=== PATIENT | female | born 1945 ===

== ENCOUNTER 2017-12-30 03:02 | Observation (INO) | payer MEDICARE ==
[2017-12-29 14:22] LABS: INR 0.94
--- NOTE | 2017-12-29 15:29 | RADIOLOGY IMAGING REPORT ---
FACILITY: [facility] [place] PATIENT NAME: Spring Westbrook : 1945 MR: [id number] V: [id number] EXAM DATE: ORDERING PHYSICIAN: JUANITA BARNARD TECHNOLOGIST: Location: [facility] Patient: Spring Westbrook : 1945 Visit/Account:[id number] Date of Sevice: 12/29/2017 LEGS BILAT STANDING HIPS-ANKLE Indication: PRE TKA Comparison: None. Findings: Right leg length: 80.8 cm. This is measured from the cephalad portion of the femoral head to the tib ial distal articular surface. Right femur measurement from the superior margin of the femoral head t o the medial femoral condyle is 44.8 cm.. The right tibia measures 35.5 cm from the medial tibial pl ateau to the medial tibial plafond. Left leg measurement: 80.2 cm. The left femur measures 45.2 cm from the superior margin of the left femoral head to the medial femoral condyle. The left tibia measures 34.5 cm from the medial tibial p lateau to the medial tibial plafond. No acute osseous amount is seen in the right or left lower extremity. Impression: Right and left lower extremity measurements as described above. The right leg is slightly longer than the left. Report Dictated By: Neel Jon at 12/29/2017 3:10 PM Report E-Signed By: Neel Jon at 12/29/2017 3:25 PM WSN:[id number]
[2017-12-30] VITALS (11 sets, daily range): BP systolic 100–154; BP diastolic 62–86; Ht 157.5 cm; Wt 84.4 kg
[~2017-12-30] VITALS: Ht 157.5 cm; Wt 84.4 kg
[~2017-12-30 03:02] MED LIST: ASPI-1471 PO; ASPI-764 PO; CHOL10005 PO; HYDR-2966 PO; HYDR-317 PO; LISI-374 PO; NS 0.9% IVPB ONE; OMEP-114 PO; PRAV20TA66 PO; PROM-110 PO; QUIN40TA37 PO; SCOPOLAMINE 1.5 MG PATCH TD ONE; SCOT TD; TRANEXAMIC AC 1000 MG/10ML SDV 1,000 MG in DEXTROSE 5% 50 ML BAG 50 ML IV ONE; VANCOMYCIN IVPB ONE; cloNIDine EPIDUR INJ 100MCG/ML 40 MCG, ROPIVACAINE 0.5% 20 ML VIAL 25 ML, EPINEPHrine H... INJ ONE
[2017-12-30] MEDS ORDERED: VANCOMYCIN(*) 1 GM VIAL 1 GM, VANCOMYCIN (*) 0.5 GM VIAL 0.25 GM in NS(*) 0.9% 250 ML B... IVPB ONE (07:50)
[2017-12-30] MEDS ORDERED: APREPITANT 40 MG CAP PO ONE (08:00)
[2017-12-30] MEDS ORDERED: MIDAZOLAM 2 MG/2 ML VIAL IVP PRN (08:50)
[2017-12-30] MEDS ORDERED: TRANEXAMIC AC 1000 MG/10ML SDV 1,000 MG in DEXTROSE 5% 50 ML BAG 50 ML IV ONE (08:50)
[2017-12-30] MEDS ORDERED: cloNIDine EPIDUR INJ 100MCG/ML 40 MCG, ROPIVACAINE 0.5% 20 ML VIAL 25 ML, EPINEPHrine H... INJ ONE (08:50)
[2017-12-30] MEDS ORDERED: NORMOSOL R SOLN(*) 1000 ML BAG 1,000 ML IV PRN (08:50)
[2017-12-30] MEDS ORDERED: LIDOCAINE/SOD BICARB 8.4% SYR ID ONE (08:50)
[2017-12-30] MEDS ORDERED: fentaNYL CITR 250 MCG/5 ML AMP ONE (11:02)
[2017-12-30] MEDS ORDERED: ROPIVACAINE 0.5% 20 ML VIAL ONE (11:44)
[2017-12-30] MEDS ORDERED: PROPOFOL EMUL(*) 10MG/ML 20 ML 160 ML ONE (11:45)
[2017-12-30] MEDS ORDERED: DEXAMETHASONE SOD PHOS 10MG/ML ONE (11:45)
[2017-12-30] MEDS ORDERED: LIDOCAINE MPF 1% 5 ML VIAL ONE (11:45)
[2017-12-30] MEDS ORDERED: ONDANSETRON 4 MG/2 ML VIAL ONE (11:45)
[2017-12-30] MEDS ORDERED: PROPOFOL EMUL(*) 10MG/ML 20 ML 40 ML ONE (12:24)
[2017-12-30] MEDS ORDERED: diphenhydrAMINE 25 MG CAP PO PRN (12:45)
[2017-12-30] MEDS ORDERED: PROMETHAZINE 25 MG/ML 1 ML AMP IVP PRN (12:45)
[2017-12-30] MEDS ORDERED: FLUSH 10 ML SYR IVP PRN (12:45)
[2017-12-30] MEDS ORDERED: ONDANSETRON 4 MG/2 ML VIAL IVP PRN (12:45)
[2017-12-30] MEDS ORDERED: ACETAMINOPHEN 500 MG TAB PO PRN (12:45)
[2017-12-30] MEDS ORDERED: KCL/D5LR 20 MEQ/1000 ML PREMIX 1,000 ML IV PRN (12:45)
[2017-12-30] MEDS ORDERED: NALOXONE HCL 0.4 MG/ML VIAL IVP PRN (12:50)
[2017-12-30] MEDS ORDERED: HYDROmorphone PCA 6 MG/30 ML IV PRN (12:50)
[2017-12-30] MEDS ORDERED: fentaNYL CITR 100 MCG/2 ML AMP ONE (13:26)
[2017-12-30] MEDS ORDERED: FLUT1BLS3 INH (14:22)
[2017-12-30] MEDS ORDERED: [UNRECOGNIZED DRUG - OTHER] INH SCH (14:30)
--- NOTE | 2017-12-30 15:02 | Hospitalist Consultation ---
History of Present Illness Requesting Physician Dr. Stroud Reason for Consult Medication Management Chief Complaint s/p left total knee replacement History of Present Illness She was admitted s/p left total knee replacement. It is reported that the surgery went well and without complication. History Problems: (1) Diabetes Status: Chronic Comment: Type 2, Diet Controlled (2) Hypertension Status: Chronic (3) GERD (gastroesophageal reflux disease) Status: Chronic (4) Hypercholesteremia Status: Chronic Home Meds Reported Medications Fluticasone/Vilanterol (Breo Ellipta 200-25 Mcg INH) 1 Each Blst.w.dev, 1 PUFF INH PRN 12/30/17 Aspirin (ASPIR 81) 81 Mg Tablet.dr, 81 MG PO QDAY, TAB 12/22/17 Cholecalciferol (Vitamin D3) (VITAMIN D3) 1,000 Unit Tablet, 1000 UNIT PO DAILY , TAB 12/22/17 Lisinopril (LISINOPRIL) 40 Mg Tablet, 40 MG PO QDAY, TAB 12/22/17 Omeprazole (PRILOSEC) 20 Mg Capsule.dr, 1 TAB PO QDAY TAKE ONE TABLET BY MOUTH ONCE A DAY 01/13/15 Pravastatin Sodium (PRAVASTATIN SODIUM) 20 Mg Tablet, 20 MG PO QDAY 01/13/15 Hydrochlorothiazide (HYDROCHLOROTHIAZIDE) 25 Mg Tablet, 1 TAB PO QDAY TAKE ONE TABLET BY MOUTH EVERY DAY 01/13/15 Allergies: Coded Allergies: oxycodone (Verified Allergy, Intermediate, NAUSEA/VOMITING, 01/13/15) Hx Smoking: No Smoking Status: Never Smoker Exposure to Second Hand Smoke?: No Caffeine Intake: Coffee, Soda Caffeine/Cups Per Day: 2-3 Hx Alcohol Use: Yes Hx Substance Use Disorder: No Review of Systems All Systems Reviewed/Normal: Yes, Except as Noted Exam Vital Signs Vital Signs Date Time Temp Pulse Resp B/P (MAP) Pulse Ox O2 Delivery O2 Flow Rate FiO2 12/30/17 14:13 97 Nasal Cannula 2.0 12/30/17 14:03 98.0 71 12 12/30/17 07:40 154/86 (108) General Appearance: Alert, Awake, No Acute Distress, Afebrile Neuro: No Gross deficits Cardiovascular: Regular Rate and Rhythm Respiratory: No Respiratory Distress, Clear to Auscultation GI: Abd Soft and Non-Tender Extremities: No Edema Psych: Alert & Oriented X3, Appropriate Mood & Affect Medical Decision Making Data Points Result Diagram: 12/30/17 1314 Assessment and Plan Problems: (1) S/P knee replacement Status: Acute Assessment & Plan: Followed by Dr. Stroud. She will be placed on Aspirin 325mg daily for DVT prophylaxis. (2) Hypertension Status: Chronic Assessment & Plan: She is on chronic treatment with Lisinopril and Hydrochlorothiazide. We have restarted the Lisinopril with parameters. (3) Diabetes Status: Chronic Assessment & Plan: Diet controlled. She will be placed on AC and HS sugars, as well as Insulin sliding scale #2. She was given steroids during surgery. (4) GERD (gastroesophageal reflux disease) Status: Chronic Assessment & Plan: She is on chronic treatment with Omeprazole. She will be placed on Protonix during admission. (5) Hypercholesteremia Status: Chronic Assessment & Plan: She is on chronic treatment with Pravastatin. Venous Thromboembolism Antithrombotics Is Pt On Any Antithrombotics?: No Prophylaxis Tx Contraindicated Pharmacological Contraindicati: Surgical Contraindication Problem Qualifiers (1) S/P knee replacement: Laterality: left Qualified Codes: Z96.652 - Presence of left artificial knee joint (2) Hypertension: Hypertension type: essential hypertension Qualified Codes: I10 - Essential ( primary) hypertension (3) Diabetes: Diabetes mellitus type: type 2 CHUCKY BAGLEY Dec 30, 2017 15:02
--- NOTE | 2017-12-30 15:51 | RADIOLOGY IMAGING REPORT ---
FACILITY: [facility] - [place] PATIENT NAME: Spring Westbrook : 1945 MR: [id number] V: [id number] EXAM DATE: ORDERING PHYSICIAN: JUANITA BARNARD TECHNOLOGIST: Location: [facility] [place] Patient: Spring Westbrook : 1945 Visit/Account:[id number] Date of Sevice: 12/30/2017 Exam type: KNEE LIMITED LEFT History: l tka Comparison: December 29, 2017. Findings: There is a left knee arthroplasty that appears in good anatomic alignment on the AP and lateral view. Soft tissue gas projects over the anterior aspect of this postoperative knee IMPRESSION: 1. As above Report Dictated By: Rhina Milligan MD at 12/30/2017 3:47 PM Report E-Signed By: Rhina Milligan MD at 12/30/2017 3:48 PM WSN:[id number]
[2017-12-30] MEDS: INSULIN HUM LISPRO 100 UN/ML 3 ML VIAL SUBQ PRN ×2 (16:33→21:23)
--- NOTE | 2017-12-30 16:52 | OPERATIVE REPORT 1 ---
EVENT DATE: December 30, 2017 SURGEON: Jaydon Stroud MD ANESTHESIOLOGIST: Domingo Sosa MD ANESTHESIA: Spinal plus adductor canal block and general. POLICE SERVICE TECHNICIAN: Frank Cohen MD PREOPERATIVE DIAGNOSIS Left knee degenerative joint disease. POSTOPERATIVE DIAGNOSIS Left knee degenerative joint disease. PROCEDURE PERFORMED Left total knee arthroplasty. ESTIMATED BLOOD LOSS 100 INTRAVENOUS FLUIDS Crystalloid 1500 and no colloid. TOURNIQUET TIME Approximately 65 minutes at 275 mmHg. SPECIMENS No specimens. COMPLICATIONS No complications. IMPLANTS USED Attune 4 femoral posterior stabilized component cut at 6 degrees with a 4 fixed- bearing tibial component, a 32 anatomic patella, and a 6 x 4 mm insert ( posterior stabilized). SUMMARY OF PROCEDURE The patient was brought into the operating room and placed on the OR table in the supine position. She had reported a significant reaction to the DURAMORPH spinal done previously, so standard spinal was given for pain control, and an adductor canal block was also given. She was then given a light general anesthetic. Her left lower extremity was prepped and draped in the usual sterile fashion. The limb was exsanguinated, and the tourniquet was inflated to 275 mmHg. A utilitarian anterior incision was made, deepened through skin and subcutaneous tissue, followed by a medial parapatellar approach. The joint fluid was clear. We resected the anterior cruciate ligament and removed portions of the fat pad as well as the patellofemoral ligament. Intramedullary guidance was obtained at the femur, followed by making our initial cut 9 mm off the end at 6 degrees. We measured the femur. It was about half way between a 4 and a 5 and, therefore, we selected the 4, placed the cutting block, and then checked the guide to determine if we would undercut the femur, and it looked like it would come flush with the anterior surface. Therefore, we made our cuts , and it looked good. We sized it, and it appeared that the 4 standard would fit fine without the narrow. We placed the block for the jig box operator and removed this tissue and then placed the trial. It seemed to fit well, so we cut the lugs. We then moved on to the tibia. Intramedullary guidance was once again obtained. She did not have as much wear here as in the patellofemoral joint, but there was certainly some wear medially. We removed cartilage on the medial side to expose the bone margin, then went 2 mm below this for our sizing position, and then checked laterally. We were 9 mm below the existing cartilage surface, and that seemed to be appropriate. The cut was made. We measured her, and as per the previous findings, she was about between a 4 and a 5. The 5 gave slightly more full coverage anteromedially and anterolaterally, but it hung over posteriorly on the lateral side significantly in the rotation that was required; therefore, a 4 was selected. We still had good edge loading on the margins of the tibia. We cut the frieda and then did the trial with different sizes. It looked like a 6 would probably work best for an insert. The patella was extremely small and quite worn. I used a ingrid for the cut, so we only cut off about 7 mm of bone. Cement was mixed. Implants were opened. We irrigated the wound extensively, placed cement restrictors on both the tibia and the femur, and then inserted the devices starting with the tibia, moving to the femur, followed by the temporary insert, and then the patella. Excess cement was removed. We locked and loaded the knee until fully polymerized, and then we gave a second gram of tranexamic acid before deflating the tourniquet, controlling bleeding with unipolar cautery, and then irrigating one final time before checking the implant again. It looked like the 6 mm would fit well. The patella tracked nicely, and there was good stability at 20 degrees of flexion as well as full flexion. We exchanged the trial for the final 6 mm x 4 insert and ranged the knee one more time to confirm everything was fine. The wound was irrigated. We closed the fascia with #1 Vicryl, followed by 3-0 Vicryl for subcutaneous tissue, and 4-0 Monocryl for the subcuticular layer. She was then awakened and transferred to the recovery area in stable condition with a dry, sterile dressing in place. JOE
[2017-12-30] MEDS: APAP/HYDROCODONE 325/5 TAB PO PRN ×2 (17:16→21:22)
[2017-12-30] MEDS: PRAVASTATIN SOD 20 MG TAB PO SCH (21:22)
[2017-12-31 03:25] VITALS: BP 140/66
[2017-12-31] MEDS: APAP/HYDROCODONE 325/5 TAB PO PRN ×5 (04:57→22:38)
[2017-12-31 07:00] LABS: PLATELET COUNT, AUTOMATED 206 K/uL (150-450)
[2017-12-31 07:48] VITALS: BP 123/70
--- NOTE | 2017-12-31 07:51 | Hospitalist Progress Note ---
Subjective Progress Notes Subjective No cp/sob. Mouth breather o/n so needed the oxymask. Physical Exam Vital Signs Date Time Temp Pulse Resp B/P (MAP) Pulse Ox O2 Delivery O2 Flow Rate FiO2 12/31/17 03:25 97.8 65 18 140/66 (90) 93 Oxy Mask 4.0 General Appearance: Alert, Awake, No Acute Distress Result Diagram: 12/31/17 0615 Assessment and Plan Problems: (1) S/P knee replacement Status: Acute Assessment & Plan: Followed by Dr. Stroud. She will be placed on Aspirin 325mg daily for DVT prophylaxis. (2) Hypertension Status: Chronic Assessment & Plan: She is on chronic treatment with Lisinopril and Hydrochlorothiazide. We have restarted the Lisinopril with parameters. (3) Diabetes Status: Chronic Assessment & Plan: Diet controlled. She will be placed on AC and HS sugars, as well as Insulin sliding scale #2. She was given steroids during surgery. (4) GERD (gastroesophageal reflux disease) Status: Chronic Assessment & Plan: She is on chronic treatment with Omeprazole. She will be placed on Protonix during admission. (5) Hypercholesteremia Status: Chronic Assessment & Plan: She is on chronic treatment with Pravastatin. Problem Qualifiers (1) S/P knee replacement: Laterality: left Qualified Codes: Z96.652 - Presence of left artificial knee joint (2) Hypertension: Hypertension type: essential hypertension Qualified Codes: I10 - Essential ( primary) hypertension (3) Diabetes: Diabetes mellitus type: type 2 ALEXI WILLETT MD Dec 31, 2017 07:51
[2017-12-31] MEDS: ASPIRIN 325 MG TAB PO SCH (08:17)
[2017-12-31] MEDS: PANTOPRAZOLE SOD 40 MG TABEC PO SCH (08:17)
[2017-12-31] MEDS: LISINOPRIL 20 MG TAB PO SCH (08:17)
[2017-12-31] MEDS: INSULIN HUM LISPRO 100 UN/ML 3 ML VIAL SUBQ PRN ×2 (08:18→17:12)
[2017-12-31 11:51] VITALS: BP 107/56
[2017-12-31 19:11] VITALS: BP 127/68
[2017-12-31] MEDS ORDERED: MOMETASONE/FORMOT 200MCG/5 MCG IH PRN (19:25)
[2017-12-31] MEDS: PRAVASTATIN SOD 20 MG TAB PO SCH (20:19)
[2017-12-31 22:39] VITALS: BP 142/71
[2018-01-01 03:07] VITALS: BP 144/80
[2018-01-01] MEDS: APAP/HYDROCODONE 325/5 TAB PO PRN ×2 (03:29→08:13)
--- NOTE | 2018-01-01 06:23 | Hospitalist Progress Note ---
Subjective Progress Notes Subjective She reports doing well. No CP/SOB/N/V. Physical Exam Vital Signs Date Time Temp Pulse Resp B/P (MAP) Pulse Ox O2 Delivery O2 Flow Rate FiO2 01/01/18 03:07 98.4 95 14 144/80 (101) 100 Oxy Mask 3.0 General Appearance: Alert, Awake Cardiovascular: Regular Rate and Rhythm Respiratory: Clear to Auscultation Result Diagram: 12/31/17 0615 Item Value Date Time Whole Blood Glucose 127 mg/DL H 12/31/172023 Whole Blood Glucose 176 mg/DL H 12/31/17 162 Whole Blood Glucose 129 mg/DL H 12/31/17 1149 Whole Blood Glucose 158 mg/DL H 12/31/17 0752 Assessment and Plan Problems: (1) S/P knee replacement Status: Acute Assessment & Plan: Followed by Dr. Stroud. She will be on Aspirin 325mg daily for DVT prophylaxis. (2) Hypertension Status: Chronic Assessment & Plan: She is on chronic treatment with Lisinopril and Hydrochlorothiazide. (3) Diabetes Status: Chronic Assessment & Plan: Diet controlled. No changes. (4) GERD (gastroesophageal reflux disease) Status: Chronic Assessment & Plan: She is on chronic treatment with Omeprazole. (5) Hypercholesteremia Status: Chronic Assessment & Plan: She is on chronic treatment with Pravastatin. (6) Hypoxia Assessment & Plan: She may have ALISE as it is worse with sleeping. She will most likely need at least temporary O2 and should have sleep study. I discussed this with the patient and she will follow up with her primary care physician in next 1-2 weeks. Exam Sepsis Risk: No Definite Risk Problem Qualifiers (1) S/P knee replacement: Laterality: left Qualified Codes: Z96.652 - Presence of left artificial knee joint (2) Hypertension: Hypertension type: essential hypertension Qualified Codes: I10 - Essential ( primary) hypertension (3) Diabetes: Diabetes mellitus type: type 2 CAMPBELL BEAVER MD Jan 01, 2018 06:23
[2018-01-01 06:29] LABS: PLATELET COUNT, AUTOMATED 205 K/uL (150-450)
[2018-01-01 06:59] VITALS: BP 140/72
[2018-01-01] MEDS ORDERED: HYDR-385 PO (07:23)
[2018-01-01] MEDS: PANTOPRAZOLE SOD 40 MG TABEC PO SCH (08:13)
[2018-01-01] MEDS: ASPIRIN 325 MG TAB PO SCH (08:13)
[2018-01-01] MEDS: LISINOPRIL 20 MG TAB PO SCH (08:13)
[2018-01-01] MEDS ORDERED: ASPI-757 PO (09:43)
== END 2018-01-01 09:38 | disposition home or self-care (01) ==
LOC: OR 03:02 → MED 13:55
PROVIDERS: ADMIT Orthopaedic Surgery Hand Surgery; ATTEND Orthopaedic Surgery Hand Surgery
DX: M17.12 Unilateral primary osteoarthritis, left knee (principal); E11.9 Type 2 diabetes mellitus without complications; I10 Essential (primary) hypertension; Z79.899 Other long term (current) drug therapy
CPT/HCPCS: 27447; 36415; 36416; 73560; 77073; 82948; 85014; 85018; 85025; 85610; 86850; 86900; 86901; 96372; 97116; 97161; 97530; A9270; C1713; C1776; G0378; J0171; J0735; J1100; J1815; J1885; J2001; J2250; J2405; J2704; J2795; J3010; J3370; J7050; J7060; J8501; 82310; 82374; 82435; 82565; 82947; 84132; 84295; 84520